=== PATIENT | female | born 1965 | race Caucasian/White ===

== ENCOUNTER → 2020-07-22 | Outpatient (CLI) | payer BC, OTHER | LOC: RAD 12:06 | DX: R05 Cough (principal) | CPT/HCPCS: 71046 ==

== ENCOUNTER → 2020-08-22 | Outpatient (CLI) | payer BC, OTHER | LOC: HEART 5 13:43 | DX: J84.9 Interstitial pulmonary disease, unspecified (principal) | CPT/HCPCS: 94010 ==